=== PATIENT | female | born 1940 | race American Indian/Alaskan Native ===

== ENCOUNTER 2019-02-03 19:45 | Emergency (ER) | payer MEDICARE ==
--- NOTE | 2019-02-03 19:53 | Emergency Department Report ---
Blank Doc - Documentation Documentation: This is a 78-year-old female that presents with abdominal pain with nausea and rectal bleeding. Denies any vomiting. This initial assessment/diagnostic orders/clinical plan/treatment(s) is/are subject to change based on patient's health status, clinical progression and re-assessment by fellow clinical providers in the ED. Further treatment and workup at subsequent clinical providers discretion. Patient/guardians urged not to elope from the ED as their condition may be serious if not clinically assessed and managed. Initial orders include: 1- Patient sent to MAIN ED for further evaluation and treatment 2- labs 3- UA
[2019-02-03 21:03] LABS: Basophils % (Auto) 0.5 % (0.0-1.8); Eosinophils # (Auto) 0.2 K/mm3 (0.0-0.4); Eosinophils % (Auto) 3.5 % (0.0-4.3); Hemoglobin 13.3 gm/dl (10.1-14.3); Lymphocytes # (Auto) 1.9 K/mm3 (1.2-5.4); Mean Corpuscular HGB Conc 33 % (30-34); Mean Corpuscular Volume 96 fl (79-97); Monocytes # (Auto) 0.3 K/mm3 (0.0-0.8); Monocytes % (Auto) 7.4 % (0.0-7.3); Platelet Count 183 K/mm3 (140-440); Red Blood Count 4.18 M/mm3 (3.65-5.03); Red Cell Distribution Width 13.4 % (13.2-15.2)
[2019-02-03] MEDS ORDERED: MORPHINE IV ONE (21:13)
[2019-02-03] MEDS ORDERED: NACL 0.9% 500 ML 500 ML IV ONE (21:14)
[2019-02-03] MEDS ORDERED: ANTIVERT PO ONE (21:14)
--- NOTE | 2019-02-03 21:15 | Emergency Department Report ---
ED General Adult HPI - General Chief complaint: Abdominal Pain Stated complaint: LOWER ABD PAIN Time Seen by Provider: 02/03/19 19:51 Source: patient, family, RN notes reviewed, old records reviewed Mode of arrival: Ambulatory Limitations: Physical Limitation - History of Present Illness Initial comments: Primary care Dr.: Dr. Sutton Past medical history: Hypertension, vertigo, stroke, residual left upper extremity weakness, history of appendectomy, history of cholecystectomy This is a 78-year-old female patient is not known to this provider previously. The patient presents to the emergency room with a complaint of suprapubic lower abdominal pain, questionable rectal bleeding, questionable mucus in stool, report of dizziness, nausea, no vomiting, feeling like her vision is blurred, and that her "vertigo is acting up." Sensation of vertigo is intermittent, painless, present for over 24 hours, does not radiate anywhere, does not appear to have exacerbating or relieving factors. She reports chronic tinnitus in her left ear. She complains of suprapubic abdominal pain. It is present since 1 day. It increases with palpation. It decreases with rest. She thinks that her "hemorrhoids are acting up." Her daughter is at the bedside, and believes that the patient had a colonoscopy, but does not recall the results. The patient also endorses dysuria. She endorses generalized malaise. She may have had a fever, but she is not sure. -: Gradual Location: abdomen Radiation: non-radiation Quality: aching Consistency: other Improves with: other Worsens with: other - Related Data Home Medications Medication Instructions Recorded Confirmed Last Taken Aspirin [Aspirin BABY CHEW TAB] 81 mg PO QDAY 06/19/13 09/28/14 09/27/14 amLODIPine [Norvasc] 10 mg PO DAILY 06/19/13 09/28/14 09/27/14 Previous Rx's Medication Instructions Recorded Last Taken Type Ciprofloxacin HCl [Ciprofloxacin 500 mg PO BID #14 tablet 09/29/14 Unknown Rx TAB] Meclizine [Antivert] 25 mg PO TID PRN #30 tablet 09/29/14 Unknown Rx Acetaminophen [Non-Aspirin Extra 500 mg PO Q6HR PRN #30 tablet 02/03/19 Unknown Rx Strength] Ciprofloxacin HCl [Ciprofloxacin 500 mg PO Q12HR #10 tab 02/03/19 Unknown Rx TAB] Hydrocortisone [Anusol-Hc 2.5% TOP 30 gm RC QHS PRN #5 cream..g. 02/03/19 Unknow n Rx CREAM] metroNIDAZOLE [Flagyl] 500 mg PO Q8HR #15 tablet 02/03/19 Unknown Rx Allergies Allergy/AdvReac Type Severity Reaction Status Date / Time codeine Allergy Unknown Verified 04/15/14 10:56 Penicillins Allergy Unknown Verified 04/15/14 10:56 ED Review of Systems ROS: Stated complaint: LOWER ABD PAIN Other details as noted in HPI Constitutional: malaise, weakness Eyes: denies: eye discharge ENT: denies: ear pain, throat pain, epistaxis, congestion Respiratory: denies: cough Cardiovascular: denies: chest pain Gastrointestinal: abdominal pain, hematochezia Genitourinary: dysuria Musculoskeletal: arthralgia, myalgia Skin: denies: lesions Neurological: weakness Psychiatric: anxiety ED Past Medical Hx - Past Medical History Hx Hypertension: Yes 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) Hx Asthma: Yes - Surgical History Past Surgical History?: Yes Hx Cholecystectomy: Yes Additional Surgical History: Appendectomy - Social History Smoking Status: Never Smoker Substance Use Type: None - Medications Home Medications: Home Medications Medication Instructions Recorded Confirmed Last Taken Type Aspirin [Aspirin BABY CHEW TAB] 81 mg PO QDAY 06/19/13 09/28/14 09/27/14 History amLODIPine [Norvasc] 10 mg PO DAILY 06/19/13 09/28/14 09/27/14 History Ciprofloxacin HCl [Ciprofloxacin 500 mg PO BID #14 tablet 09/29/14 Unknown Rx TAB] Meclizine [Antivert] 25 mg PO TID PRN #30 tablet 09/29/14 Unknown Rx Acetaminophen [Non-Aspirin Extra 500 mg PO Q6HR PRN #30 tablet 02/03/19 Unknown Rx Strength] Ciprofloxacin HCl [Ciprofloxacin 500 mg PO Q12HR #10 tab 02/03/19 Unknown Rx TAB] Hydrocortisone [Anusol-Hc 2.5% TOP 30 gm RC QHS PRN #5 cream..g. 02/03/19 Unknown Rx CREAM] metroNIDAZOLE [Flagyl] 500 mg PO Q8HR #15 tablet 02/03/19 Unknown Rx ED Physical Exam - General Limitations: Language Barrier, Physical Limitation General appearance: in no apparent distress, other - Head Head exam: Present: atraumatic, normocephalic - Eye Eye exam: Present: normal appearance, EOMI, other (visual acuity intact to finger counting, color perception, reading at a close distance) - ENT ENT exam: Present: normal exam, normal orophraynx, mucous membranes moist, normal external ear exam - Neck Neck exam: Present: normal inspection, full ROM. Absent: tenderness, meningismus - Respiratory Respiratory exam: Present: normal lung sounds bilaterally. Absent: respiratory distress - Cardiovascular Cardiovascular Exam: Present: regular rate, normal rhythm, normal heart sounds. Absent: bradycardia, tachycardia, irregular rhythm, systolic murmur, diastolic murmur, rubs, gallop - GI/Abdominal GI/Abdominal exam: Present: soft, tenderness, hernia, other (there is a reducible midline ventral hernia noted.). Absent: distended, guarding, rebound, rigid - Rectal Rectal exam: Present: normal inspection, heme (-) stool, other (chaperoned by nurse Raffi Khan) - Extremities Exam Extremities exam: Present: normal inspection, full ROM, pedal edema, other (2+ pulses noted in the bilateral upper, lower extremities. Compartments soft. No long bony tenderness. The pelvis is stable.). Absent: calf tenderness - Back Exam Back exam: Present: normal inspection, full ROM. Absent: tenderness, CVA tenderness (R), CVA tenderness (L), paraspinal tenderness, vertebral tenderness - Neurological Exam Neurological exam: Present: alert, oriented X3, normal gait, motor sensory deficit (there is chronic weakness and contracture in the left upper extremity.), other (there is no facial droop. The tongue is midline. Extraocular movements are intact bilaterally. There is 5 out of 5 strength in right upper extremity, bilateral lower extremities. Sensation intact to light touch in right upper extremity, bilateral lower extremities.) - Psychiatric Psychiatric exam: Present: normal affect, normal mood - Skin Skin exam: Present: warm, dry, intact, normal color. Absent: rash ED Course Vital Signs 02/03/19 19:52 Temperature 98.8 F Pulse Rate 74 Respiratory 18 Rate Blood Pressure 155/84 O2 Sat by Pulse 97 Oximetry - Reevaluation(s) Reevaluation #1: 02/03/19 22:05 Differential diagnosis, including but not limited to: Peripheral vertigo, subacute stroke, colitis, diverticulitis, GI bleed, dehydration, renal insufficiency, urinary tract infection, colonic malignancy, diverticulosis, diverticulitis, angiodysplasia Assessment and plan: 78-year-old female with a primary complaint of lower abdominal pain, question rectal bleeding, question rectal pus, abdominal pain, secondary complaints of dysuria, and dizziness, reportedly consistent with prior episodes of peripheral vertigo. GCS of 15. Adjusted NIH score of 0; there are no new neurologic deficits, aside from her chronic left upper extremity weakness. Reported dizziness present for greater than 24 hours, therefore not a TPA candidate, and her exam, history and physical do not suggest large vessel occlusion. Patient will be given meclizine. Noncontrast CT scan of the brain is pending at this time. Laboratory studies demonstrate renal insufficiency, question urinary tract inf ection. CT scan of the abdomen and pelvis and brain are pending at this time. 02/03/19 22:48 Reevaluation #2: 02/03/19 22:46 Patient resting comfortably, and in no acute distress. Belly soft on repeat examination. No active vomiting. CT scan negative for acute disease. Discussed with gastroenterology on-call, Dr. Selby. We both agree that patient at this point in time does not meet criteria for hospitalization. We will discontinue the patient's lisinopril. As per discussion with GI, patient may continue aspirin. She will be started empirically on antibiotic therapy, and Anusol; patient did mention that she thought her internal hemorrhoids were actin g up. We have not seen any external bleeding. Her hemoglobin, hematocrit appeared to be acceptable. The patient is suitable for a trial of oral outpatient antibiotic management. Gastroenterology is amenable to seeing the patient in close consultation. Furthermore, the patient's daughter states that the patient has had a colonoscopy within the past 10 years, and she believes it was essentially unremarkable. Patient continues to ambulate with steady gait, and feels like her peripheral vertigo is resolved. ED Medical Decision Making - Lab Data Result diagrams: 02/03/19 20:42 02/03/19 20:42 Vital Signs 02/03/19 19:52 Temperature 98.8 F Pulse Rate 74 Respiratory 18 Rate Blood Pressure 155/84 O2 Sat by Pulse 97 Oximetry Lab Results 02/03/19 02/03/19 02/03/19 Range/Units 20:42 20:42 20:42 WBC 4.3 L (4.5-11.0) K/mm3 RBC 4.18 (3.65-5.03) M/mm3 Hgb 13.3 (10.1-14.3) gm/dl Hct 40.0 (30.3-42.9) % MCV 96 (79-97) fl MCH 32 (28-32) pg MCHC 33 (30-34) % RDW 13.4 (13.2-15.2) % Plt Count 183 (140-440) K/mm3 Lymph % (Auto) 43.0 H (13.4-35.0) % [place] % (Auto) 7.4 H (0.0-7.3) % Eos % (Auto) 3.5 (0.0-4.3) % Baso % (Auto) 0.5 (0.0-1.8) % Lymph # 1.9 (1.2-5.4) K/mm3 [place] # 0.3 (0.0-0.8) K/mm3 Eos # 0.2 (0.0-0.4) K/mm3 Baso # 0.0 (0.0-0.1) K/mm3 Seg Neutrophils % 45.6 (40.0-70.0) % Seg Neutrophils # 2.0 (1.8-7.7) K/mm3 PT 12.7 (12.2-14.9) Sec. INR 0.90 (0.87-1.13) APTT 28.5 (24.2-36.6) Sec. Sodium 141 (137-145) mmol/L Potassium 3.7 (3.6-5.0) mmol/L Chloride 102.1 (98-107) mmol/L Carbon Dioxide 27 (22-30) mmol/L Anion Gap 16 mmol/L BUN 9 (7-17) mg/dL Creatinine 1.4 H (0.7-1.2) mg/dL Estimated GFR 44 ml/min BUN/Creatinine Ratio 6 % Glucose 105 H (65-100) mg/dL Calcium 9.5 (8.4-10.2) mg/dL Total Bilirubin 0.30 (0.1-1.2) mg/dL AST 30 (5-40) units/L ALT 17 (7-56) units/L Alkaline Phosphatase 62 (35-129) units/L Total Protein 8.0 (6.3-8.2) g/dL Albumin 4.0 (3.9-5) g/dL Albumin/Globulin Ratio 1.0 % Lipase 31 (13-60) units/L Urine Color (Yellow) Urine Turbidity (Clear) Urine pH (5.0-7.0) Ur Specific [place] (1.003-1.030) Urine Protein (Negative) mg/dL Urine Glucose (UA) (Negative) mg/dL Urine Ketones (Negative) mg/dL Urine Blood (Negative) Urine Nitrite (Negative) Urine Bilirubin (Negative) Urine Urobilinogen (<2.0) mg/dL Ur Leukocyte Esterase (Negative) Urine WBC (Auto) (0.0-6.0) /HPF Urine RBC (Auto) (0.0-6.0) /HPF U Epithel Cells (Auto) (0-13.0) /HPF Urine Bacteria (Auto) (Negative) /HPF Urine Mucus /HPF Blood Type 02/03/19 02/03/19 Range/Units 20:49 21:15 WBC (4.5-11.0) K/mm3 RBC (3.65-5.03) M/mm3 Hgb (10.1-14.3) gm/dl Hct (30.3-42.9) % MCV (79-97) fl MCH (28-32) pg MCHC (30-34) % RDW (13.2-15.2) % Plt Count (140-440) K/mm3 Lymph % (Auto) (13.4-35.0) % [place] % (Auto) (0.0-7.3) % Eos % (Auto) (0.0-4.3) % Baso % (Auto) (0.0-1.8) % Lymph # (1.2-5.4) K/mm3 [place] # (0.0-0.8) K/mm3 Eos # (0.0-0.4) K/mm3 Baso # (0.0-0.1) K/mm3 Seg Neutrophils % (40.0-70.0) % Seg Neutrophils # (1.8-7.7) K/mm3 PT (12.2-14.9) Sec. INR (0.87-1.13) APTT (24.2-36.6) Sec. Sodium (137-145) mmol/L Potassium (3.6-5.0) mmol/L Chloride (98-107) mmol/L Carbon Dioxide (22-30) mmol/L Anion Gap mmol/L BUN (7-17) mg/dL Creatinine (0.7-1.2) mg/dL Estimated GFR ml/min BUN/Creatinine Ratio % Glucose (65-100) mg/dL Calcium (8.4-10.2) mg/dL Total Bilirubin (0.1-1.2) mg/dL AST (5-40) units/L ALT (7-56) units/L Alkaline Phosphatase (35-129) units/L Total Protein (6.3-8.2) g/dL Albumin (3.9-5) g/dL Albumin/Globulin Ratio % Lipase (13-60) units/L Urine Color Yellow (Yellow) Urine Turbidity Clear (Clear) Urine pH 6.0 (5.0-7.0) Ur Specific [place] 1.008 (1.003-1.030) Urine Protein <15 mg/dl (Negative) mg/dL Urine Glucose (UA) Neg (Negative) mg/dL Urine Ketones Neg (Negative) mg/dL Urine Blood Neg (Negative) Urine Nitrite Neg (Negative) Urine Bilirubin Neg (Negative) Urine Urobilinogen < 2.0 (<2.0) mg/dL Ur Leukocyte Esterase Lg (Negative) Urine WBC (Auto) 5.0 (0.0-6.0) /HPF Urine RBC (Auto) 3.0 (0.0-6.0) /HPF U Epithel Cells (Auto) 1.0 (0-13.0) /HPF Urine Bacteria (Auto) 1+ (Negative) /HPF Urine Mucus Few /HPF Blood Type A POSITIVE - EKG Data -: EKG Interpreted by Oh EKG shows normal: sinus rhythm Rate: normal - EKG Data 02/03/19 22:07 This is a sinus rhythm, 60 bpm, normal axis, normal intervals, low voltage, motion artifact, not endorse chest pain. Not consistent with ST elevation myocardial infarction. - Radiology Data Radiology results: pending, report reviewed, image reviewed Print Report Referring Physician: OSWALD PAK Patient Name: RACHEL ALONSO Date of : 1940 Sex: Female Report Date: 2019-02-03 Report Status: Finalized Findings [facility] [address] [place] [address] Cat Scan Report Signed Patient: RACHEL ALONSO MR#: [id number] : 1940 Acct:[id number] Age/Sex: 78 / F ADM Date: 02/03/19 Loc: ED Attending Dr: Ordering Physician: OSWALD PAK MD Date of Service: 02/03/19 Procedure(s): CT abdomen pelvis wo con Accession Number(s): [id number] cc: OSWALD PAK MD PROCEDURE: CT abdomen and pelvis without contrast. TECHNIQUE: Computerized axial tomography of the abdomen and pelvis was performed without intravenous contrast. This study is performed without intravascular contrast material and its sensitivity for abdominal and pelvic pathology, including neoplasms, inflammation, abscess, free fluid, thrombosis, arterial dissection and infarction, is reduced compared with a contrast enhanced study. CT DOSE LENGTH PRODUCT: 1015.7 mGycm HISTORY: Abdominal pain. COMPARISONS: None. FINDINGS: The lung bases are clear. There is mild bronchiectasis in the right lower lobe. There are no pleural effusions. The heart size is normal. The liver, pancreas and spleen are grossly normal. Cholecystectomy clips are present. There is no biliary dilatation. The adrenal glands are not enlarged. Both kidneys appear normal in size and configuration. There is a tiny nonobstructing calculus in the lower half of the left kidney. This measures 2 mm. The abdominal aorta has a normal caliber. There is no retroperitoneal adenopathy. The unopacified gastrointestinal tract is unremarkable. There is mild colonic diverticular disease. The appendix is not visualized. There is a midline ventral wall hernia containing the mid transverse colon. There are no signs of intestinal obstruction. The bladder is unremarkable. There are some calcifications in the uterus. The regional skeleton appears intact. There is a small right inguinal canal hernia containing fat. IMPRESSION: Mild bronchiectasis in the right lower lobe. Previous cholecystectomy. Mild colonic diverticulosis. Ventral wall hernia containing a portion of the transverse colon. Tiny nonobstructing left renal calculus. This document is electronically signed by Oswald Velasco MD., Feb 03 2019 10:27:42 PM ET Transcribed By: MRM Dictated By: OSWALD VELASCO MD Electronically Authenticated By: OSWALD VELASCO MD Signed Date/Time: 02/03/192228 Print Report Referring Physician: OSWALD PAK Patient Name: RACHEL ALONSO Date of : 1940 Sex: Female Report Date: 2019-02-03 Report Status: Finalized Findings [facility] [address] [place] [address] Cat Scan Report Signed Patient: RACHEL ALONSO MR#: [id number] : 1940 Acct:[id number] Age/Sex: 78 / F ADM Date: 02/03/19 Loc: ED Attending Dr: Ordering Physician: OSWALD PAK MD Date of Service: 02/03/19 Procedure(s): CT head/brain wo con Accession Number(s): [id number] cc: OSWALD PAK MD PROCEDURE: CT HEAD/BRAIN WO CON TECHNIQUE: Computerized tomography of the head was performed without contrast material. CT DOSE LENGTH PRODUCT: 928 mGycm HISTORY: DIZZY BLURRY VISION COMPARISONS: None . FINDINGS: Brain: There is no evidence of intracranial hemorrhage. No parenchymal hemorrhage is seen. No mass lesions or mass effect is identified. No abnormal extra-axial fluid collections or masses are seen. Old lacunar infarct visualized right basal ganglia. There also appears to be an old lacunar infarct in left caudate nucleus. There is some decreased density seen in the periventricular white matter without mass effect. This is fairly symmetric and does not exhibit any mass effect consistent with gliosis probably on the basis of microvascular disease or white matter changes of aging. Ventricles: The ventricles, sulcal pattern and fissures are prominent consistent with atrophy. Bone Windows: No evidence of fracture. Paranasal sinuses: Visualized paranasal sinuses are clear. Mastoid air cells: Clear. IMPRESSION: There is evidence of mild atrophy and moderate gliosis. Mature lacunar infarct visualized right basal ganglia and left caudate nucleus. No acute abnormalities identified. If further evaluation is clinically indicated MRI may be helpful. This document is electronically signed by Arnie Palm MD., Feb 03 2019 10:25:18 PM ET Transcribed By: DFN Dictated By: ARNIE PALM MD Electronically Authenticated By: ARNIE PALM MD Signed Date/Time: 02/03/19 5344 Critical care attestation.: If time is entered above; I have spent that time in minutes in the direct care of this critically ill patient, excluding procedure time. ED Disposition Clinical Impression: Lower abdominal pain, Renal insufficiency, Dizziness Disposition: DC-01 TO HOME OR SELFCARE Is pt being admited?: No Does the pt Need Aspirin: No Condition: Stable Additional Instructions: Advance diet as tolerated. Drink water, 4-6 cups of water per day. Avoid consumption of Motrin, Naprosyn, ibuprofen, Aleve. Discontinue lisinopril medication. do not consume alcohol for the next week. Take medications as needed/directed. Follow up with a gastroenterology specialist within the next 3-5 days. Not following up as recommended may resultant undiagnosed cancer, tumor, malignancy. Laboratory studies demonstrated mildly impaired renal function. This should be followed up by her primary care doctor within the next 2-[address] scan of the brain, abdomen/pelvis did not demonstrate any acutely emergent condition at this time. Incidental nonemergent findings were noted, and these can and should be followed up by her primary care doctor within the recommended timeframe. Please have your primary care doctor contact the medical records department to obtain CT scan and laboratory study results. Please return to the emergency room right away with new, worsening or different symptoms, or symptoms not present on the initial ER evaluation. Referrals: DAVIDA SELBY MD [Staff Physician] - 3-5 Days [facility] [Provider Group] - 3-5 Days
[2019-02-03 21:18] LABS: Calcium 9.5 mg/dL (8.4-10.2); INR 0.9 (0.87-1.13); Partial Thromboplastin Time 28.5 Sec. (24.2-36.6)
[2019-02-03 21:33] LABS: Bacteria,Urine 1+ /HPF (Negative); Bilirubin,Urine NEG (Negative); Blood,Urine NEG (Negative); Color,Urine Yellow (Yellow); Mucus,Urine FEW /HPF; Protein,Urine <15 mg/dL mg/dL (Negative); Urobilinogen,Urine < 2.0 mg/dL (<2.0)
[2019-02-03] MEDS ORDERED: NACL 0.9% 1000 ML 1,000 ML ONE (21:53)
--- NOTE | 2019-02-03 22:27 | Cat Scan Report ---
PROCEDURE: CT HEAD/BRAIN WO CON TECHNIQUE: Computerized tomography of the head was performed without contrast material. CT DOSE LENGTH PRODUCT: 928 mGycm HISTORY: DIZZY BLURRY VISION COMPARISONS: None . FINDINGS: Brain: There is no evidence of intracranial hemorrhage. No parenchymal hemorrhage is seen. No mass lesions or mass effect is identified. No abnormal extra-axial fluid collections or masses are seen. Old lacunar infarct visualized right basal ganglia. There also appears to be an old lacunar infarct i n left caudate nucleus. There is some decreased density seen in the periventricular white matter without mass effect. This i s fairly symmetric and does not exhibit any mass effect consistent with gliosis probably on the basis of microvascular disease or white matter changes of aging. Ventricles: The ventricles, sulcal pattern and fissures are prominent consistent with atrophy. Bone Windows: No evidence of fracture. Paranasal sinuses: Visualized paranasal sinuses are clear. Mastoid air cells: Clear. IMPRESSION: There is evidence of mild atrophy and moderate gliosis. Mature lacunar infarct visualized right basal ganglia and left caudate nucleus. No acute abnormalities identified. If further evaluation is clinically indicated MRI may be helpful. This document is electronically signed by Arnie Solis MD., Feb 03 2019 10:25:18 PM ET
--- NOTE | 2019-02-03 22:29 | Cat Scan Report ---
PROCEDURE: CT abdomen and pelvis without contrast. TECHNIQUE: Computerized axial tomography of the abdomen and pelvis was performed without intravenous contrast. This study is performed without intravascular contrast material and its sensitivity for ab dominal and pelvic pathology, including neoplasms, inflammation, abscess, free fluid, thrombosis, art erial dissection and infarction, is reduced compared with a contrast enhanced study. CT DOSE LENGTH PRODUCT: 1015.7 mGycm HISTORY: Abdominal pain. COMPARISONS: None. FINDINGS: The lung bases are clear. There is mild bronchiectasis in the right lower lobe. There are no pleural effusions. The heart size is normal. The liver, pancreas and spleen are grossly normal. Cholecystecto my clips are present. There is no biliary dilatation. The adrenal glands are not enlarged. Both kidne ys appear normal in size and configuration. There is a tiny nonobstructing calculus in the lower half of the left kidney. This measures 2 mm. The abdominal aorta has a normal caliber. There is no retrop eritoneal adenopathy. The unopacified gastrointestinal tract is unremarkable. There is mild colonic d iverticular disease. The appendix is not visualized. There is a midline ventral wall hernia containin g the mid transverse colon. There are no signs of intestinal obstruction. The bladder is unremarkable . There are some calcifications in the uterus. The regional skeleton appears intact. There is a small right inguinal canal hernia containing fat. IMPRESSION: Mild bronchiectasis in the right lower lobe. Previous cholecystectomy. Mild colonic dive rticulosis. Ventral wall hernia containing a portion of the transverse colon. Tiny nonobstructing lef t renal calculus. This document is electronically signed by Oswald Perry MD., Feb 03 2019 10:27:42 PM ET
[2019-02-03] MEDS ORDERED: LEVAQUIN PO ONE (22:35)
[2019-02-03] MEDS ORDERED: FLAGYL PO ONE (22:35)
[2019-02-03 23:01] VITALS: BP 148/71
== END 2019-02-03 23:20 | disposition home or self-care (01) ==
LOC: ED 19:45
DX: N28.9 Disorder of kidney and ureter, unspecified (principal); R42 Dizziness and giddiness; J45.909 Unspecified asthma, uncomplicated; I10 Essential (primary) hypertension; Z90.49 Acquired absence of other specified parts of digestive tract; Z79.82 Long term (current) use of aspirin; Z88.0 Allergy status to penicillin; Z88.5 Allergy status to narcotic agent
CPT/HCPCS: 36415; 70450; 74176; 80053; 81001; 82140; 82550; 83690; 83735; 85025; 85610; 85730; 86850; 86900; 86901; 93005; 93010; 96374; 99284; J2270; J7030; 96361

== ENCOUNTER 2019-03-12 09:04 | Emergency (ER) | payer MEDICARE ==
[2019-03-12 10:26] LABS: Basophils % (Auto) 0.1 % (0.0-1.8); Eosinophils # (Auto) 0.1 K/mm3 (0.0-0.4); Eosinophils % (Auto) 1.8 % (0.0-4.3); Hemoglobin 12.3 gm/dl (10.1-14.3); Lymphocytes # (Auto) 0.4 K/mm3 (1.2-5.4); Lymphocytes % (Auto) 10.8 % (13.4-35.0); Mean Corpuscular HGB Conc 33 % (30-34); Mean Corpuscular Volume 96 fl (79-97); Monocytes # (Auto) 0.2 K/mm3 (0.0-0.8); Monocytes % (Auto) 4.6 % (0.0-7.3); Platelet Count 162 K/mm3 (140-440); Red Blood Count 3.87 M/mm3 (3.65-5.03); Red Cell Distribution Width 13.4 % (13.2-15.2)
[2019-03-12] MEDS ORDERED: ZOFRAN IV ONE (10:31)
[2019-03-12 10:32] LABS: Albumin 3.5 g/dL (3.9-5); Calcium 9.1 mg/dL (8.4-10.2)
--- NOTE | 2019-03-12 10:51 | Emergency Department Report ---
ED General Adult HPI - General Chief complaint: Abdominal Pain Stated complaint: WEAK/DIZZY/NAUSEA Time Seen by Provider: 03/12/19 10:10 Source: patient Mode of arrival: Wheelchair Limitations: No Limitations - History of Present Illness Initial comments: Patient is a 78-year-old female past medical history of high blood pressure and stroke with chronic left-sided weakness who presents with abdominal pain and nausea vomiting has been going on for the last 3 days. History is obtained by patient and patient's daughter. Patient's states she has been having nausea and vomiting the pain is located in the abdomen as a 6 out of 10 it is an achy type of pain nothing makes it better and nothing makes it worse. - Related Data Home Medications Medication Instructions Recorded Confirmed Last Taken Aspirin [Aspirin BABY CHEW TAB] 81 mg PO QDAY 06/19/13 09/28/14 09/27/14 amLODIPine [Norvasc] 10 mg PO DAILY 06/19/13 09/28/14 09/27/14 Previous Rx's Medication Instructions Recorded Last Taken Type Ciprofloxacin HCl [Ciprofloxacin 500 mg PO BID #14 tablet 09/29/14 Unknown Rx TAB] Meclizine [Antivert] 25 mg PO TID PRN #30 tablet 09/29/14 Unknown Rx Acetaminophen [Non-Aspirin Extra 500 mg PO Q6HR PRN #30 tablet 02/03/19 Unknown Rx Strength] Ciprofloxacin HCl [Ciprofloxacin 500 mg PO Q12HR #10 tab 02/03/19 Unknown Rx TAB] Hydrocortisone [Anusol-Hc 2.5% TOP 30 gm RC QHS PRN #5 cream..g. 02/03/19 Unknown Rx CREAM] metroNIDAZOLE [Flagyl] 500 mg PO Q8HR #15 tablet 02/03/19 Unknown Rx Ondansetron [Zofran Odt] 4 mg PO Q8HR PRN #30 tab.rapdis 03/12/19 Unknown Rx Allergies Allergy/AdvReac Type Severity Reaction Status Date / Time codeine Allergy Unknown Verified 03/12/19 09:05 Penicillins Allergy Unknown Verified 03/12/19 09:05 ED Review of Systems ROS: Stated complaint: WEAK/DIZZY/NAUSEA Other details as noted in HPI Constitutional: denies: chills, fever Eyes: denies: eye pain, eye discharge, vision change ENT: denies: ear pain, throat pain Respiratory: denies: cough, shortness of breath, wheezing Cardiovascular: denies: chest pain, palpitations Endocrine: no symptoms reported Gastrointestinal: abdominal pain, nausea, vomiting. denies: diarrhea Genitourinary: denies: urgency, dysuria, discharge Musculoskeletal: denies: back pain, joint swelling, arthralgia Skin: denies: rash, lesions Neurological: denies: headache, weakness, paresthesias Psychiatric: denies: anxiety, depression Hematological/Lymphatic: denies: easy bleeding, easy bruising ED Past Medical Hx - Past Medical History Hx Hypertension: Yes Hx CVA: Yes (with residual left upper extremity weakness) Hx Asthma: Yes - Surgical History Hx Cholecystectomy: Yes Hx Appendectomy: Yes Additional Surgical History: Appendectomy - Social History Smoking Status: Never Smoker Substance Use Type: None - Medications Home Medications: Home Medications Medication Instructions Recorded Confirmed Last Taken Type Aspirin [Aspirin BABY CHEW TAB] 81 mg PO QDAY 06/19/13 09/28/14 09/27/14 History amLODIPine [Norvasc] 10 mg PO DAILY 06/19/13 09/28/14 09/27/14 History Ciprofloxacin HCl [Ciprofloxacin 500 mg PO BID #14 tablet 09/29/14 Unknown Rx TAB] Meclizine [Antivert] 25 mg PO TID PRN #30 tablet 09/29/14 Unknown Rx Acetaminophen [Non-Aspirin Extra 500 mg PO Q6HR PRN #30 tablet 02/03/19 Unknown Rx Strength] Ciprofloxacin HCl [Ciprofloxacin 500 mg PO Q12HR #10 tab 02/03/19 Unknown Rx TAB] Hydrocortisone [Anusol-Hc 2.5% TOP 30 gm RC QHS PRN #5 cream..g. 02/03/19 Unknown Rx CREAM] metroNIDAZOLE [Flagyl] 500 mg PO Q8HR #15 tablet 02/03/19 Unknown Rx Ondansetron [Zofran Odt] 4 mg PO Q8HR PRN #30 tab.rapdis 03/12/19 Unknown Rx ED Physical Exam - General Limitations: No Limitations General appearance: alert, in no apparent distress - Head Head exam: Present: atraumatic, normocephalic - Eye Eye exam: Present: normal appearance - ENT ENT exam: Present: mucous membranes moist - Neck Neck exam: Present: normal inspection - Respiratory Respiratory exam: Present: normal lung sounds bilaterally. Absent: respiratory distress - Cardiovascular Cardiovascular Exam: Present: regular rate, normal rhythm. Absent: systolic murmur, diastolic murmur, rubs, gallop - GI/Abdominal GI/Abdominal exam: Present: soft, normal bowel sounds - Extremities Exam Extremities exam: Present: normal inspection - Back Exam Back exam: Present: normal inspection - Neurological Exam Neurological exam: Present: alert, oriented X3 - Psychiatric Psychiatric exam: Present: normal affect, normal mood - Skin Skin exam: Present: warm, dry, intact, normal color. Absent: rash ED Course Vital Signs 03/12/19 09:22 Temperature 99.7 F H Pulse Rate 89 Respiratory 24 Rate Blood Pressure 127/77 O2 Sat by Pulse 97 Oximetry ED Medical Decision Making - Lab Data Result diagrams: 03/12/19 09:44 03/12/19 09:44 Lab Results 03/12/19 03/12/19 03/12/19 Range/Units 09:44 09:44 09:44 WBC 3.5 L (4.5-11.0) K/mm3 RBC 3.87 (3.65-5.03) M/mm3 Hgb 12.3 (10.1-14.3) gm/dl Hct 37.0 (30.3-42.9) % MCV 96 (79-97) fl MCH 32 (28-32) pg MCHC 33 (30-34) % RDW 13.4 (13.2-15.2) % Plt Count 162 (140-440) K/mm3 Lymph % (Auto) 10.8 L (13.4-35.0) % [place] % (Auto) 4.6 (0.0-7.3) % Eos % (Auto) 1.8 (0.0-4.3) % Baso % (Auto) 0.1 (0.0-1.8) % Lymph # 0.4 L (1.2-5.4) K/mm3 [place] # 0.2 (0.0-0.8) K/mm3 Eos # 0.1 (0.0-0.4) K/mm3 Baso # 0.0 (0.0-0.1) K/mm3 Seg Neutrophils % 82.7 H (40.0-70.0) % Seg Neutrophils # 2.9 (1.8-7.7) K/mm3 Sodium 137 (137-145) mmol/L Potassium 3.6 (3.6-5.0) mmol/L Chloride 103.2 (98-107) mmol/L Carbon Dioxide 23 (22-30) mmol/L Anion Gap 14 mmol/L BUN 12 (7-17) mg/dL Creatinine 1.3 H (0.7-1.2) mg/dL Estimated GFR 48 ml/min BUN/Creatinine Ratio 9 % Glucose 112 H (65-100) mg/dL Calcium 9.1 (8.4-10.2) mg/dL Total Bilirubin 0.60 (0.1-1.2) mg/dL AST 24 (5-40) units/L ALT 13 (7-56) units/L Alkaline Phosphatase 47 (35-129) units/L Total Protein 7.0 (6.3-8.2) g/dL Albumin 3.5 L (3.9-5) g/dL Albumin/Globulin Ratio 1.0 % Lipase 23 (13-60) units/L - Medical Decision Making Chief medical diagnosis: Gastritis Differential medical diagnosis: Small bowel obstruction, appendicitis, diverticulitis I will get CBC, CMP, lipase, IV fluids, IV antiemetics, IV pain medication and CT SCAN of abdomen and pelvis. Patient and patient's family member are refusing CT scan and she is tolerating oral intake and is no longer nauseous also patient home with Zofran. Engaged with risks and benefits of CT scan patient does not want to get a CT scan of her belly. Additional verbal discharge instructions were given. Critical care attestation.: If time is entered above; I have spent that time in minutes in the direct care of this critically ill patient, excluding procedure time. ED Disposition Clinical Impression: Nausea and vomiting Qualifiers: Vomiting type: unspecified Vomiting Intractability: unspecified Qualified Code(s): R11.2 - Nausea with vomiting, unspecified Abdominal pain Qualifiers: Abdominal location: generalized Qualified Code(s): R10.84 - Generalized abdominal pain Disposition: TO HOME OR SELFCARE Is pt being admited?: No Does the pt Need Aspirin: No Condition: Stable Instructions: Abdominal Pain (ED) Prescriptions: Ondansetron [Zofran Odt] 4 mg PO Q8HR PRN #30 tab.rapdis PRN Reason: Nausea
[2019-03-12 12:37] LABS: Bilirubin,Urine NEG (Negative); Blood,Urine MOD (Negative); Color,Urine Yellow (Yellow); Mucus,Urine FEW /HPF; Protein,Urine <15 mg/dL mg/dL (Negative); Urobilinogen,Urine < 2.0 mg/dL (<2.0)
[2019-03-12 13:50] VITALS: BP 121/62
== END 2019-03-12 13:50 | disposition home or self-care (01) ==
LOC: ED 09:04
DX: R11.2 Nausea with vomiting, unspecified (principal); R10.84 Generalized abdominal pain; I10 Essential (primary) hypertension; I63.9 Cerebral infarction, unspecified; J45.909 Unspecified asthma, uncomplicated; Z90.49 Acquired absence of other specified parts of digestive tract; Z79.899 Other long term (current) drug therapy; Z88.6 Allergy status to analgesic agent; Z88.0 Allergy status to penicillin
CPT/HCPCS: 36415; 80053; 81001; 83690; 85025; 87086; 96374; 99283; J2405